=== PATIENT | female | born 1955 | race Caucasian/White ===

== ENCOUNTER → 2017-08-08 | Outpatient (CLI) | payer BC ==
[~2017-08-08] MED LIST: BUPR100T6 PO; THYR60TA PO; THYR90TA PO
== END | disposition home or self-care (01) ==
LOC: MERGE 15:30 → STAR 16:00
PROVIDERS: ATTEND Surgery
DX: Z01.818 Encounter for other preprocedural examination (principal); E03.9 Hypothyroidism, unspecified; D05.11 Intraductal carcinoma in situ of right breast; Z87.891 Personal history of nicotine dependence
CPT/HCPCS: 93005

== ENCOUNTER 2017-08-14 08:24 | Day surgery (SDC) | payer BC ==
[~2017-08-14] VITALS: Ht 152.4 cm; Wt 72.1 kg
[2017-08-14] MEDS ORDERED: LIDOCAINE 1%, 2ML ONE (10:51)
[2017-08-14 11:09] VITALS: BP 127/83
[2017-08-14] MEDS ORDERED: LACTATED RINGERS 1,000 ML IV SCH (11:12)
[2017-08-14] MEDS ORDERED: VIT1CAPS10 PO (11:13)
[2017-08-14] MEDS ORDERED: LIDOCAINE 1%, 2ML SQ PRN (11:30)
[2017-08-14] MEDS ORDERED: FENTANYL PF 250 MCG/5ML ONE (11:34)
[2017-08-14] MEDS ORDERED: MIDAZOLAM 1 MG/ML, 2ML ONE (11:34)
[2017-08-14] MEDS ORDERED: ISOSULFAN BLUE 10 MG/ML, 5ML IV ONE (11:58)
[2017-08-14] MEDS ORDERED: BUPIVACAINE/PF 0.5% ONE (11:58)
[2017-08-14] MEDS ORDERED: hydrALAzine 20 MG/ML, 1ML IV PRN (12:30)
[2017-08-14] MEDS ORDERED: ACETAMINOPHEN 325 MG TABLET PO PRN (12:30)
[2017-08-14] MEDS ORDERED: METOPROLOL 1 MG/ML, 5ML IV PRN (12:30)
[2017-08-14] MEDS ORDERED: FENTANYL PF 100 MCG/2ML IV PRN (12:30)
[2017-08-14] MEDS ORDERED: LORazepam 2 MG/ML, 1ML IVPush PRN (12:30)
[2017-08-14] MEDS ORDERED: MEPERIDINE/PF 25MG/0.5ML IVPush PRN (12:30)
[2017-08-14] MEDS ORDERED: HYDROmorphone 1 MG/ML, 1ML IV PRN (12:30)
[2017-08-14] MEDS ORDERED: ALBUTEROL SULFATE 2.5 MG/3 ML NPPB PRN (12:30)
[2017-08-14] MEDS ORDERED: OXYcodone 5 MG/5 ML ORAL.SOL UDC PO PRN (12:30)
[2017-08-14] MEDS ORDERED: PROMETHAZINE 25 MG/ML, 1ML IV PRN (12:30)
[2017-08-14] MEDS ORDERED: DEXAMETHASONE 4 MG/ML, 1ML ONE (12:33)
[2017-08-14] MEDS ORDERED: PROPOFOL 10 MG/ML, 20ML ONE (12:33)
[2017-08-14] MEDS ORDERED: CEFAZOLIN 1,000 MG ONE ×2 (12:33)
[2017-08-14] MEDS ORDERED: ONDANSETRON 2MG/ML, 2ML ONE (12:33)
== END 2017-08-14 15:20 ==
LOC: CFH 08:24 → OUT 15:20
PROVIDERS: ATTEND Surgery
DX: D05.11 Intraductal carcinoma in situ of right breast (principal); Z86.000 Personal history of in-situ neoplasm of breast; E03.9 Hypothyroidism, unspecified; Z87.891 Personal history of nicotine dependence
CPT/HCPCS: 19281; 19301; 76098; 88305; 88307; J0690; J1100; J2250; J2405; J2704; J3010; J3490; J7120

== ENCOUNTER → 2017-09-08 | Outpatient (CLI) | payer BC ==
[~2017-09-08] MED LIST changes: +VIT1CAPS10 PO
== END ==
LOC: ROC 07:42
PROVIDERS: ATTEND Radiology Radiation Oncology
DX: Z02.9 Encounter for administrative examinations, unspecified (principal)

== ENCOUNTER → 2020-08-31 | Outpatient (CLI) | payer MEDICARE, BC ==
[~2020-08-31] MED LIST changes: +OCUVITE SOFTGE1 EACH PO; -VIT1CAPS10 PO
== END | disposition home or self-care (01) ==
LOC: CFH 07:25
PROVIDERS: ATTEND Internal Medicine
DX: N64.4 Mastodynia (principal); Z85.3 Personal history of malignant neoplasm of breast
CPT/HCPCS: 76642; 77066; G0279